=== PATIENT | male | born 1960 | race Caucasian/White ===

== ENCOUNTER 2021-02-06 15:26 | Outpatient (RCR) | payer BC, SELFPAY ==
[2017-04-15 10:19] VITALS: BMI 34.0
== END 2021-04-21 23:59 ==
LOC: IMMUN 15:26
PROVIDERS: PCP Internal Medicine; Visit Provider Family Medicine
DX: Z23 Encounter for immunization (principal)
CPT/HCPCS: 0001A; 0002A; 91300